=== PATIENT | male | born 1985 | race Caucasian/White ===

== ENCOUNTER 2016-12-05 06:01 | Emergency (ER) | payer SELFPAY ==
[~2016-12-05] VITALS: Ht 193 cm; Wt 106.8 kg
[2016-12-05 06:05] VITALS: BP 137/89; PULSE 99; RESP 16; O2SAT 100
--- NOTE | 2016-12-05 06:25 | ED.REPORT ---
HPI-Extremity Problem Lower Date of Service Dec 05, 2016 ED Provider: Evette Prado MD 31-year-old male with past medical history opioid dependence, multiple cellulitis/abscess, PE . His emergency department today with redness pain and swelling of the right leg. He states his problem began within the last 24 hours , with progressive redness and swelling of the lower leg. He last used IV drugs 2 days ago and states that he has multiple sites over his entire body that he is injected and are now swollen and hard. He states that these areas are not painful, he has tried to drain them and nothing comes out. There is a site on the left upper thigh that he strained within the last 24 hours, there is also a site in the popliteal area of the right knee that he has also tried to herman within the last week. All areas show ecchymosis in the surrounding areas are not erythematous or painful to the touch. He also has an indurated lesion on the right anterior lower leg. One week ago he finished a 10 day course of clindamycin 4 times a day. He denies chest pain, shortness of breath , nausea, vomiting, fever, chills. Nursing Notes Stated Complaint: SWOLLEN FEET AND LEGS Chief Complaint: Extremity Trauma Allergies: Coded Allergies: No Known Allergies (Verified Allergy, Unknown, 08/26/15) Scheduled Clindamycin (Clindamycin) 300 Mg Capsule 300 MG PO TID Sulfamethoxazole/Trimeth 800-160 mg (Bactrim DS) 1 Each Tablet 1 TABLET PO BID General Time Seen by MD: 06:23 Chief Complaint Other (redness and swelling of the right lower extremity) Hx Obtained From: Patient Arrived By: Walk-in Onset Occurred: 9 - 12 hours ago Context of Onset: Other (IV drug abuse) Symptom Duration: Since onset Severity: Current: No pain currently Severity: Maximum: No pain Associated with: Reports: Swelling, Denies: Abdominal pain, Fever, Joint swelling, Nausea, Vomiting, Weakness Pertinent Negative: Pt denies other symptoms Risk-Extremity Prob Lower Well's Criteria for DVT Well's DVT Score: >2 pts (high risk 85%) Past Medical History Past Medical History Notes: in recovery clean for 13 months 08/26/2015 Last use 2 days prior Past Medical History Multiple cellulitis/abscess Heroin dependence Past Surgical History none Family History n/a Smoking History Current Every Day Smoker Social History Alcohol Use: Denies alcohol use Drug Use: In recovery, IV drugs, Meth Occupation recently Review of Systems Basic Review of Systems Eyes: Vision NL ENT: Hearing NL Respiratory: No shortness of breath, No cough, No wheeze Cardiovascular: No chest pain, No palpitations GI: No abdominal pain, No nausea, No vomiting Hematologic: No bleeding Psychiatric: Normal thought content Constitutional: Denies: Fever Musculoskeletal: Reports: Extremity swelling, Denies: Back pain, Extremity pain, Joint pain, Joint swelling, Lumbar pain Skin: Reports Swelling, Denies Diaphoresis, Denies Itching Neurologic: Denies: Dizziness Complete sys rev & neg: except as marked. Physical Exam Multiple lesions were noted over the patient's body, these were raised firm, non -erythematous, cutaneous lesions, with surrounding ecchymosis. The majority of these are located in the patient's abdomen. All of which he states were used as injection sites previously. The patient attempted to herman multiple of these lesions and reports no drainage of any kind. Today on exam they do not appear to be infected or inflamed, except for a small 2 cm lesion on the patient's left thigh which he states he recently lanced by himself. There is also a raised ulceration left leg anteriorly immediately distal to the knee. none of the lesions listed above appear to be extremely inflamed or in need of immediate medical care. Initial Vital Signs Vital Signs (First) Date Time Temp Pulse Resp B/P Pulse Ox O2 Delivery O2 Flow Rate FiO2 12/05/16 06:05 36.5 99 16 137/89 100 Room Air Initial VS: Reviewed, Vital signs normal General/Constitutional: Well-developed, Well-nourished Head / Eyes: Atraumatic, Normocephalic, PERRL ENT: Mucous membranes moist, Conjunctiva normal, No scleral icterus Neck: Supple, Non-tender, Full range of motion Respiratory: Breath sounds normal, Clear to auscultation, No respiratory distress Cardiovascular: Regular rate & rhythm, Heart sounds normal, Intact distal pulses Abdomen / GI: Soft, Non-tender, No guarding, No rebound, No distention Upper Extremities: Vascular intact, Neuro intact Skin: Warm, Dry, No cyanosis Neurologic: Alert, Oriented, Nonfocal Psychiatric: Mood/affect normal, Behavior normal, Normal thought content Right Leg / Calf: Positive: Erythema present, R calf > L calf, Swelling present... (Moderate), Tenderness present... (Mild), Warmth present, Negative: Lucina's sign positive, Neuro deficit present, Pulses distal absent , Pulses distal decreased Left Leg / Calf: Positive: Erythema present, Swelling present... (Mild) Cardiovascular: Heart rate NL, Regular rhythm, Heart sounds NL, No gallop, No murmurs, No rubs, Cap refill not delayed, Peripheral circulation NL, Pulses = bilaterally Interpretation & Diagnostics Lab Results Interpretation Test 12/05/16 07:58 Urine Color Yellow (YELLOW) Urine Appearance Clear (CLEAR,HAZY) Urine pH 5.5 (5.0-8.0) Urine Specific [place] 1.030 (1.003-1.035) Urine Protein Negativemg/dL (NEG,TRACE) Urine Glucose (UA) Negativemg/dL (NEGATIVE) Urine Ketones Negativemg/dL (NEGATIVE) Urine Occult Blood Negative (NEGATIVE) Urine Nitrite Negative (NEGATIVE) Urine Bilirubin Negative (NEGATIVE) Urine Urobilinogen Normalmg/dL (NORMAL) Urine Leukocyte Esterase Negative (NEGATIVE) Urine RBC 0-2/hpf (0-2) Urine WBC 0-5/hpf (0-5) Urine Epithelial Cells Occasional/hpf (NONE-MOD) Urine Crystals None seen (NONE SEEN) Urine Bacteria Few/hpf (NONE-FEW) Urine Hyaline Casts Occasional/lpf (NONE) Urine Granular Casts None seen (NONE SEEN) Urine Waxy Casts None seen (NONE SEEN) Urine Red Blood Cell Casts None seen (NONE SEEN) Urine White Blood Cell Casts None seen (NONE SEEN) Urine Mucus Present (None Seen) Urine Trichomonas None seen (NONE SEEN) Urine Yeast None (NONE SEEN) Urinalysis Comment Urine Culture Reflexed Not indicated ECG Interpretation Interpreted by: ED physician Normal ECG Interpretation: Normal rate, Normal sinus rhythm, No acute ischemic changes, Normal QRS, Normal intervals Rhythm / Conduction: Left axis deviation Drug Screen / Level Interp Urine positive opiate, Urine pos amphetamines Re-Eval/Medical Decision Med Decision/Clinical Course Patient has some obvious redness and swelling in the lower legs, he is at high risk for PE considering his previous history of DVT and PE. For this reason an ultrasound was done bilaterally of the lower legs. This showed no acute findings. Due to these findings are not concerning for DVT or PE at this time. Patient also has a history of drug use and for this reason we are concerned about systemic bacteremia, however the patient is experiencing no symptoms at this time and denies shortness of breath, chest pain. On physical exam I listened very closely to the patient's heart sounds and could detect no murmurs , rubs, clicks or any other heart sounds which would indicate to me that there was concern for endocarditis at this time. Despite these findings I still think it would be quezada to have the patient's blood cultures run. We attempted to insert an IV here with the patient was uncooperative, combined with the fact that he is a difficult stick due to his IV drug use. I discussed thoroughly with the patient the reasons for doing the testing, and he agrees to these would be good test to do. However, the patient has an appointment this morning with a dentist that he does not want to miss and requests that these additional blood tests be done as an outpatient. I believe that this is a reasonable course of action. He states that he does have a primary care provider and will follow up. Other testing reveals no acute findings. Counseled Regarding: Diagnosis, Lab results, Need for follow-up, When/why to return to ED Discharge & Departure Impression: Primary Impression: Cellulitis Site of cellulitis: extremity Site of cellulitis of extremity: lower extremity Laterality: unspecified laterality Qualified Code: L03.119 - Cellulitis of unspecified part of limb Additional Impressions: IVDU (intravenous drug user) Thrombophlebitis Disposition: Home Discharge Condition All VS Reviewed: Yes Condition: Stable Additional Instructions: You came in today concerned about redness and swelling of your legs. Because of a history of pulmonary embolism and previous deep vein thrombosis we were concerned about a DVT here today. For this reason ultrasound was performed which was negative for any signs of clot in the lower extremities. Chest x-ray was also negative for any pathological changes. We attempted to place an IV to be able to administer medication and draw labs, but this was unsuccessful. He will be given intramuscular dose of ceftriaxone here in the hospital today, and we will send you home with oral doses of antibiotics to continue taking over next 10 days. Please take as prescribed We would have liked to have done blood cultures as well as assess for any signs of infection ongoing. Your symptoms today were not a great concern for blood borne disease at this time, however I highly suggest that you follow-up with a primary care provider who can run these tests and ensure that they come back normal. The recent history had relapses IV drugs we also suggest that you follow-up with [facility] as per our discussion. If any of your symptoms change and become suddenly short of breath, feverish, nauseous, vomiting please return to the emergency department as soon as possible. Referrals: Claudia Corcoran MD (PCP) Attending Statement Patient seen and examined. Significant inguinal adenopathy consistent with lower extremity cellulitis on the right. Ultrasound shows no deep venous thrombosis however he does have a superficial thrombophlebitis of the greater saphenous vein on the left explaining the redness and irritation on that thigh. Discussion regarding his IV drug use and current relapse. Offered Suboxone in the emergency department. He wanted to discuss it with his . His successfully done this in the past. Referral to [facility] given. Multiple attempts to obtain IV access for lab work as well as IV antibiotics. We were unable to obtain IV access or labs. In discussion with the patient opted to use IV ceftriaxone today and we will double cover him with clindamycin and Septra for his multiple areas of cellulitis. Strong discussion regarding injecting and strongly recommended sobriety with the use of Suboxone if needed Vikas Parks DO Dec 05, 2016 06:24 Evette Prado MD Dec 05, 2016 13:17
[2016-12-05] MEDS ORDERED: cefTRIAXone Inj 2,000 MG in Dextrose 5% Minibag Plus 50 ML IV ONE ×4 (07:25)
[2016-12-05] MEDS ORDERED: 0.9% Sodium Chloride 1,000 ML IV ONE (07:25)
[2016-12-05 08:42] LABS: APPEARANCE,URINE CLEAR (CLEAR,HAZY); COLOR,URINE YELLOW (YELLOW); PH,URINE 5.5 (5.0-8.0)
[2016-12-05 08:50] LABS: OCCULT BLOOD,URINE NEGATIVE (NEGATIVE); UROBILINOGEN,URINE NORMAL (NORMAL)
--- NOTE | 2016-12-05 09:12 | DRSVH ---
PROCEDURE: US VENOUS LEG DUPLEX BILATERAL INDICATIONS: history of DVT/bilaterall leg edema and cellulitis TECHNIQUE: Real-time imaging, as well as color and pulse Doppler interrogation, were performed of the deep veins of both legs from the inguinal ligament to the popliteal fossa. COMPARISON: None. FINDINGS: Right side: The deep veins are normally compressible, and free of intraluminal thrombus. Color and p ulse Doppler demonstrate normal phasic intravascular flow. There is normal augmentation response to distal compression maneuver. Left side: The deep veins are normally compressible, and free of intraluminal thrombus. Color and pu lse Doppler demonstrate normal phasic intravascular flow. There is normal augmentation response to d istal compression maneuver. Occlusive clot is noted in the left greater saphenous vein. IMPRESSION: 1. No evidence of deep vein thrombosis involving either the right or left lower extremities. 2. Left lower extremity superficial venous thrombosis noted with occlusive thrombus noted in the left greater saphenous vein. Dictated by: Sury Farmer MD, PhD on 12/05/2016 at 9:07 Approved by: Sury Farmer MD, PhD on 12/05/2016 at 9:10
--- NOTE | 2016-12-05 09:33 | DRSVH ---
PROCEDURE: X-RAY CHEST ONE VIEW, PORTABLE ([id number]) INDICATIONS: cellulitis, IV drug use TECHNIQUE: One view of the chest was acquired. COMPARISON: [facility], , CHEST 1VW (PORTABLE), 01/06/2014, 3:07. FINDINGS: Surgical changes and devices: None. Lungs and pleura: A serpiginous radiopacity is present at the right lung base. It is unclear whether this represents a small region of airspace opacities or overlying vascular shadow. No other acute air space opacities. No pleural effusion or pneumothorax. Mediastinum: Mediastinal contours appear normal. Heart size is normal. Bones and chest wall: No suspicious bony lesions. Overlying soft tissues appear unremarkable. IMPRESSION: Focal radiopacity at the right lung base. Short interval followup is recommended to ensur e resolution of this finding. Dictated by: Jody De Guzman M.D. on 12/05/2016 at 9:30 Approved by: Jody De Guzman M.D. on 12/05/2016 at 9:31
[2016-12-05] MEDS ORDERED: cefTRIAXone Inj 2,000 MG, Lidocaine PF 1% Inj 2.1 ML in Syringe 0 EACH IM ONE (09:45)
[2016-12-05] MEDS ORDERED: CLIN-78 PO (09:50)
[2016-12-05] MEDS ORDERED: SULF1TAB7 PO (09:50)
== END 2016-12-05 10:18 | disposition home or self-care (01) ==
LOC: SED 06:01
DX: L03.115 Cellulitis of right lower limb (principal); L03.116 Cellulitis of left lower limb; F19.10 Other psychoactive substance abuse, uncomplicated; I80.9 Phlebitis and thrombophlebitis of unspecified site; F17.200 Nicotine dependence, unspecified, uncomplicated
CPT/HCPCS: 71010; 81000; 93005; 93970; 96372; 99285; J0696